=== PATIENT | male | born 1985 | race Caucasian/White ===

== ENCOUNTER 2021-07-16 10:01 | Emergency (ER) | payer OTHER ==
[~2021-07-16] VITALS: Ht 172.7 cm; Wt 70.8 kg
[2021-07-16] MEDS ORDERED: LIDOCAINE 1%-EPI 1:100,000 20 ML VIAL ONE (10:11)
[2021-07-16] MEDS ORDERED: GELATIN SPONGE,ABSORBABLE 1 SPONGE SPONGE TP ONE ×2 (10:15→11:45)
--- NOTE | 2021-07-16 10:16 | NUR ---
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 RATES PAIN 10. WILL CONTINUE TO MONITOR THE PATIENT.
[2021-07-16] MEDS ORDERED: IBUP-1955 PO (10:31)
[2021-07-16] MEDS ORDERED: TDAP [DIPH/PERTUSSIS/TET] 0.5 ML VIAL IM ONE ×2 (11:30→11:33)
[2021-07-16] MEDS ORDERED: BACITRACIN ZINC OINT PACKET 1 EA PACKET TP ONE (11:30)
[2021-07-16 12:29] VITALS: BP 116/68
--- NOTE | 2021-07-16 12:29 | NUR ---
Patient discharged to home in stable condition. Written and verbal after care instructions given. Patient verbalizes understanding of instruction.
== END 2021-07-16 12:29 | disposition home or self-care (01) ==
LOC: ER 10:09
DX: S61.512A Laceration without foreign body of left wrist, initial encounter (principal); W26.0XXA Contact with knife, initial encounter; Y93.89 Activity, other specified; Y92.89 Other specified places as the place of occurrence of the external cause; Y99.8 Other external cause status
CPT/HCPCS: 12001; 90471; 90715; 99283; J3490

== ENCOUNTER 2021-07-18 12:31 | Emergency (ER) | payer OTHER ==
[~2021-07-18] VITALS: Ht 172.7 cm; Wt 68.0 kg
[~2021-07-18 12:31] MED LIST: IBUP-1955 PO
[2021-07-18 12:36] VITALS: BP 112/71
== END 2021-07-18 12:56 | disposition home or self-care (01) ==
LOC: ER 12:37
DX: S61.512D Laceration without foreign body of left wrist, subsequent encounter (principal); Z48.00 Encounter for change or removal of nonsurgical wound dressing; Z79.1 Long term (current) use of non-steroidal anti-inflammatories (NSAID); X58.XXXD Exposure to other specified factors, subsequent encounter

== ENCOUNTER 2021-07-25 10:17 | Emergency (ER) | payer OTHER ==
[~2021-07-25] VITALS: Ht 167.6 cm; Wt 74.4 kg
[2021-07-25 10:29] VITALS: BP 125/68
--- NOTE | 2021-07-25 10:29 | NUR ---
VISIT FOR SUTURE REMOVAL, LFA REPAIRED ON 07/18/21. VITALS ARE WITHIN NORMAL LIMITS
--- NOTE | 2021-07-25 10:54 | NUR ---
SUTURES TAKEN OUT BY DR MACKENZIE. PT TOLERATED PROCEDURE WELL. D/C IN STABLE CONDITION.
== END 2021-07-25 10:56 | disposition home or self-care (01) ==
LOC: ER 10:49
DX: Z48.02 Encounter for removal of sutures (principal); Z79.1 Long term (current) use of non-steroidal anti-inflammatories (NSAID)